=== PATIENT | male | born 1965 | race Caucasian/White ===

== ENCOUNTER 2016-09-12 04:32 | Emergency (ER) | payer SELFPAY ==
[~2016-09-12] VITALS: Ht 165.1 cm; Wt 70.5 kg
[2016-09-12 04:33] VITALS: BP 169/93; PULSE 86; RESP 18; TEMP 98.4; O2SAT 94
[2016-09-12 04:40] VITALS: O2SAT 97
--- NOTE | 2016-09-12 04:46 | PD ---
HPI Chief Complaint: Chest Pain Time Seen by Provider: 04:34 Travel History International Travel<30 days: No Contact w/Intl Traveler<30days: No Traveled to known affect area: No History of Present Illness HPI 51-year-old male complains of chest pain. Patient states that he was snorting of cocaine tonight. Patient started having chest pain subsequently. Patient states the pain is sharp pain started on the left chest with radiation to left arm. Patient complains of tingling sensation in the left arm. Patient denies any history of CAD. Patient denies history hypertension, diabetes, dyslipidemia. Patient is a smoker. Patient has history of reactive airway disease. Patient has family history heart disease. On a scale of 1-10 the pain is a 5. Patient states that the chest pains much better now compared to when it started 2 hours ago. EMS was called tonight. Patient was given aspirin 81 mg 2 prior to arrival. [facility] Social History Tobacco Use: No Allergies-Medications (Allergen,Severity, Reaction): Coded Allergies: Lortab (Verified Allergy, Severe, Itching, 09/12/16) Reported Meds & Prescriptions Reported Meds & Active Scripts Active Potassium Chloride ER (Potassium Chloride) 10 Meq Tab 10 Meq PO BID Review of Systems General / Constitutional: No: Fever Eyes: No: Visual changes HENT: No: Headaches Cardiovascular: Positive: Chest Pain or Discomfort Respiratory: No: Shortness of Breath Gastrointestinal: No: Abdominal Pain Genitourinary: No: Dysuria Musculoskeletal: No: Pain Skin: No Rash Neurologic: No: Weakness Psychiatric: No: Depression Endocrine: No: Polydipsia Hematologic/Lymphatic: No: Easy Bruising Physical Exam Narrative GENERAL: Well-nourished, well-developed patient. SKIN: Focused skin assessment warm/dry. HEAD: Normocephalic. EYES: No scleral icterus. No injection or drainage. NECK: Supple, trachea midline. No JVD or lymphadenopathy. CARDIOVASCULAR: Regular rate and rhythm without murmurs, gallops, or rubs. RESPIRATORY: Breath sounds equal bilaterally. No accessory muscle use. GASTROINTESTINAL: Abdomen soft, non-tender, nondistended. MUSCULOSKELETAL: No cyanosis, or edema. BACK: Nontender without obvious deformity. No CVA tenderness. Neurologic exam normal. Data Data Last Documented VS Vital Signs Date Time Temp Pulse Resp B/P Pulse Ox O2 Delivery O2 Flow Rate FiO2 09/12/16 05:07 91 18 147/86 97 Room Air 09/12/16 04:33 98.4 Orders Electrocardiogram (09/12/16 04:36) Complete Blood Count With Diff (09/12/16 04:36) Comprehensive Metabolic Panel (09/12/16 04:36) Creatine Kinase (Cpk) (09/12/16 04:36) Troponin I (09/12/16 04:36) Prothrombin Time / Inr (Pt) (09/12/16 04:36) Act Partial Throm Time (Ptt) (09/12/16 04:36) Chest, Single Ap (09/12/16 04:36) Iv Access Insert/Monitor (09/12/16 04:36) Ecg Monitoring (09/12/16 04:36) Oximetry (09/12/16 04:36) Labs Laboratory Tests Test 09/12/16 04:40 White Blood Count 9.5 TH/MM3 Red Blood Count 4.65 MIL/MM3 Hemoglobin 14.3 GM/DL Hematocrit 40.9 % Mean Corpuscular Volume 88.0 FL Mean Corpuscular Hemoglobin 30.7 PG Mean Corpuscular Hemoglobin 34.8 % Concent Red Cell Distribution Width 13.1 % Platelet Count 197 TH/MM3 Mean Platelet Volume 8.2 FL Neutrophils (%) (Auto) 61.1 % Lymphocytes (%) (Auto) 27.3 % Monocytes (%) (Auto) 8.3 % Eosinophils (%) (Auto) 2.4 % Basophils (%) (Auto) 0.9 % Neutrophils # (Auto) 5.8 TH/MM3 Lymphocytes # (Auto) 2.6 TH/MM3 Monocytes # (Auto) 0.8 TH/MM3 Eosinophils # (Auto) 0.2 TH/MM3 Basophils # (Auto) 0.1 TH/MM3 CBC Comment DIFF FINAL Differential Comment Prothrombin Time 10.7 SEC Prothromb Time International 1.0 RATIO Ratio Activated Partial 31.3 SEC Thromboplast Time Sodium Level 137 MEQ/L Potassium Level 3.3 MEQ/L Chloride Level 102 MEQ/L Carbon Dioxide Level 27.0 MEQ/L Anion Gap 8 MEQ/L Blood Urea Nitrogen 6 MG/DL Creatinine 0.75 MG/DL Estimat Glomerular Filtration 110 ML/MIN Rate Random Glucose 87 MG/DL Calcium Level 8.7 MG/DL Total Bilirubin 0.4 MG/DL Aspartate Amino Transf 18 U/L (AST/SGOT) Alanine Aminotransferase 19 U/L (ALT/SGPT) Alkaline Phosphatase 65 U/L Total Creatine Kinase 121 U/L Troponin I LESS THAN 0.02 NG/ML Total Protein 7.0 GM/DL Albumin 3.6 GM/DL [facility] Medical Decision Making Medical Screen Exam Complete: Yes Emergency Medical Condition: Yes Interpretation(s) 4 46 AM. EKG shows sinus rhythm nonspecific ST-T wave change. Last Impressions Chest X-Ray 09/12/16 0436 Signed Impressions: Service Date/Time: , September 12, 2016 04:34 - CONCLUSION: Normal examination. Kaushik Marie MD 5:33 AM. CBC within normal limit. Potassium 3.3. Cardiac enzymes are normal. Differential Diagnosis Differential diagnosis including musculoskeletal, angina, NH, PE, pneumothorax. Narrative Course 51-year-old male with chest pain. Patient has history of cocaine abuse. Patient arrived by EMS. Patient was given aspirin 81 mg 2. Diagnosis Primary Impression: Chest pain Qualified Code: R07.9 - Chest pain, unspecified type Additional Impressions: Hypokalemia Substance abuse Patient Instructions: General Instructions Additional Instructions: Advised patient to stop abusing drugs. Potassium as directed. Follow-up with personal physician. Return if increasing chest pain or shortness of breath. Aspirin daily. Med/Other Pt SpecificInfo: Prescription(s) given Scripts Potassium Chloride ER 10 Meq Tab10 Meq PO BID #10 TAB Ref 0 Prov:Venkata Wright MD 09/12/16 Disposition: 01 DISCHARGE HOME Condition: Stable Venkata Wright MD Sep 12, 2016 04:46
[2016-09-12 04:51] LABS: AUTOMATED NEUTROPHIL # 5.8 TH/MM3 (1.8-7.7); BASOPHIL # 0.1 TH/MM3 (0-0.2); BASOPHIL % 0.9 % (0.0-2.0); EOSINOPHIL # 0.2 TH/MM3 (0-0.4); EOSINOPHIL % 2.4 % (0.0-4.0); HEMATOCRIT 40.9 % (39.0-51.0); HEMO FLAGS DIFF FINAL; LYMPH % 27.3 % (9.0-44.0); LYMPHOCYTE # 2.6 TH/MM3 (1.0-4.8); MEAN CORPUSCULAR HEMOGLOBIN 30.7 PG (27.0-34.0); MEAN CORPUSCULAR HGB CONC 34.8 % (32.0-36.0); MONO % 8.3 % (0.0-8.0); NEUT % 61.1 % (16.0-70.0); PLATELET COUNT 197 TH/MM3 (150-450); RED BLOOD COUNT 4.65 MIL/MM3 (4.50-5.90); RED CELL DISTRIBUTION WIDTH 13.1 % (11.6-17.2); WHITE BLOOD COUNT 9.5 TH/MM3 (4.0-11.0)
[2016-09-12 05:07] VITALS: BP 147/86; PULSE 91; RESP 18; O2SAT 97
--- NOTE | 2016-09-12 05:10 | RADRPT ---
EXAM DATE/TIME: 09/12/2016 04:34 [place] COMPARISON: No previous studies available for comparison. INDICATIONS : Chest pain. MEDICAL HISTORY : None. SURGICAL HISTORY : None. ENCOUNTER: Initial ACUITY: 1 day PAIN SCORE: 6/10 LOCATION: Bilateral chest FINDINGS: A single view of the chest demonstrates the lungs to be symmetrically aerated without evidence of mas s, infiltrate or effusion. The cardiomediastinal contours are unremarkable. Osseous structures are intact. CONCLUSION: Normal examination. Kaushik Marie MD on September 12, 2016 at 5:08 Board Certified Radiologist. This report was verified electronically.
[2016-09-12 05:11] LABS: ALT (GPT) 19 U/L (12-78); ANION GAP 8 MEQ/L (5-15); AST (GOT) 18 U/L (15-37); BLOOD UREA NITROGEN 6 MG/DL (7-18); CHLORIDE 102 MEQ/L (98-107); GLOMERULAR FILTRATION RATE 110 ML/MIN (>89); POTASSIUM 3.3 MEQ/L (3.5-5.1); SODIUM (NA) 137 MEQ/L (136-145)
[2016-09-12 05:15] LABS: ALKALINE PHOSPHATASE 65 U/L (45-117); CREATINE KINASE 121 U/L (39-308); TOTAL BILIRUBIN ADULT 0.4 MG/DL (0.2-1.0)
[2016-09-12 05:21] LABS: APTT (PATIENT) 31.3 SEC (24.3-30.1); PROTHROMBIN TIME - PATIENT 10.7 SEC (9.8-11.6)
[2016-09-12] MEDS ORDERED: POTA10TA2 PO (05:35)
--- NOTE | 2016-09-12 12:21 | EKG ---
Date Performed: 09/12/2016 Time Performed: 04:36:05 PTAGE: 51 years EKG: Sinus rhythm NORMAL ECG NO PREVIOUS TRACING DOCTOR: Ike Norman Interpretating Date/Time 09/12/2016 12:19:13
== END 2016-09-12 05:52 | disposition home or self-care (01) ==
LOC: NEPE 04:32
DX: R07.9 Chest pain, unspecified (principal); E87.6 Hypokalemia; F19.10 Other psychoactive substance abuse, uncomplicated; Z72.0 Tobacco use
CPT/HCPCS: 71010; 80053; 82550; 84484; 85025; 85610; 85730; 93005

== ENCOUNTER 2016-12-04 10:54 | Emergency (ER) | payer SELFPAY ==
[~2016-12-04 10:54] MED LIST: POTA10TA2 PO
[2016-12-04 10:56] VITALS: BP 143/93; PULSE 76; RESP 20; TEMP 98.3; O2SAT 98
[2016-12-04] MEDS ORDERED: LIDOCAINE 1%/EPINEPHrine 1:100,000 SOLN 20 ML VIAL INFIL ONE (11:15)
--- NOTE | 2016-12-04 11:32 | PD ---
HPI Chief Complaint: Laceration/Skin Injury Time Seen by Provider: 11:15 Travel History International Travel<30 days: No Contact w/Intl Traveler<30days: No Traveled to known affect area: No History of Present Illness HPI 51-year-old male presents the emergency department with laceration to the hospital for the scalp. Patient states he was removing some plaster and lath with a crowbar, with a crowbar slipped and he fell forward off a small ladder, catching a nail from another board along the top of the scalp causing a laceration. He had no type of contusion or loss of consciousness. Patient is up-to-date on his tetanus. He has no other complaints or injuries. Pain is minimal. Bleeding is currently controlled. He is allergic to Lortab. [facility] Past Medical History Asthma: Yes Diminished Hearing: No Social History Alcohol Use: Yes (beer a day) Tobacco Use: No Substance Use: Yes (cocaine. ) Allergies-Medications (Allergen,Severity, Reaction): Coded Allergies: Lortab (Verified Allergy, Severe, Itching, 09/12/16) Reported Meds & Prescriptions Reported Meds & Active Scripts Active Potassium Chloride ER (Potassium Chloride) 10 Meq Tab 10 Meq PO BID Review of Systems Except as stated in HPI: all other systems reviewed are Neg General / Constitutional: No: Fever Eyes: No: Visual changes HENT: No: Headaches Cardiovascular: No: Chest Pain or Discomfort Respiratory: No: Shortness of Breath Gastrointestinal: No: Abdominal Pain Genitourinary: No: Dysuria Musculoskeletal: No: Pain Skin: No Rash Neurologic: No: Weakness Psychiatric: No: Depression Endocrine: No: Polydipsia Hematologic/Lymphatic: No: Easy Bruising Physical Exam Narrative GENERAL: Patient appears no acute distress. SKIN: Warm and dry. Patient has normal color. Normal turgor. Patient has approximately 4 cm almost full-thickness laceration to the left upper medial scalp. Skull is not visualized. HEAD: Atraumatic. Normocephalic. Tender over injured area. EYES: Pupils equal and round. No scleral icterus. No injection or drainage. ENT: No nasal bleeding or discharge. Mucous membranes pink and moist. Pharynx is clear. Airway is patent. No dental injury. NECK: Trachea midline. No bony tenderness or step-off. Range of motion is full and supple. CARDIOVASCULAR: Regular rate and rhythm. RESPIRATORY: No accessory muscle use. Clear to auscultation. Breath sounds equal bilaterally. MUSCULOSKELETAL: Extremities without clubbing, cyanosis, or edema. No obvious deformities. NEUROLOGICAL: Awake and alert. No obvious cranial nerve deficits. Motor grossly within normal limits. Five out of 5 muscle strength in the arms and legs. Normal speech. PSYCHIATRIC: Appropriate mood and affect; insight and judgment normal. Data Data Last Documented VS Vital Signs Date Time Temp Pulse Resp B/P Pulse Ox O2 Delivery O2 Flow Rate FiO2 12/04/16 10:56 98.3 76 20 143/93 98 Room Air Orders Lidocai-Epi 1%-1:100,000 Inj (Xylocaine- (12/04/16 11:15) MDM Medical Decision Making Medical Screen Exam Complete: Yes Emergency Medical Condition: Yes Differential Diagnosis Scalp contusion. Scalp laceration. Need for [place]. Narrative Course Patient is medically stable at time of exam. Tetanus is up-to-date. Laceration was repaired with 10 kevon. Dressing is placed. Wound care is discussed. Patient is given Keflex 500 mg 3 times a day 7 days. Patient take Tylenol and ibuprofen as needed and use ice to the affected area. Patient follow-up in 7 days for a wound check and staple removal. Patient can return sooner as needed. Procedures Procedure Narrative LACERATION LOCATION: Upper medial scalp LENGTH: 4 cm NUMBER OF STITCHES/KEVON: 10 states REPAIR: The area of the laceration was prepped with Betadine and sterilely draped. The laceration was infiltrated with 4 mL was 1% lidocaine with epinephrine. The wound was copiously irrigated and explored without evidence of foreign body, tendon injury or neurovascular injury. The wound was closed using kevon. This was a single layer repair. A sterile dressing was applied. The patient was advised to keep the dressing clean and dry. Patient tolerated the procedure well. Diagnosis Primary Impression: Laceration of scalp without complication Qualified Code: S01.01XA - Laceration of scalp without complication, initial encounter Patient Instructions: General Instructions, Laceration (DC) Additional Instructions: Tetanus is up-to-date. Laceration was repaired with 10 kevon. Dressing is placed. Wound care is discussed. Patient is given Keflex 500 mg 3 times a day 7 days. Patient take Tylenol and ibuprofen as needed and use ice to the affected area. Patient follow-up in 7 days for a wound check and staple removal. Patient can return sooner as needed. Med/Other Pt SpecificInfo: Prescription(s) given, Wound Care Disposition: 01 DISCHARGE HOME Condition: Stable Bo Leal Dec 04, 2016 11:32
[2016-12-04] MEDS ORDERED: CEPH500C PO (11:33)
== END 2016-12-04 11:48 | disposition home or self-care (01) ==
LOC: NEPK 10:54
DX: S01.01XA Laceration without foreign body of scalp, initial encounter (principal); J45.909 Unspecified asthma, uncomplicated; W22.8XXA Striking against or struck by other objects, initial encounter
CPT/HCPCS: 12002

== ENCOUNTER 2016-12-11 09:35 | Emergency (ER) | payer SELFPAY ==
[~2016-12-11] VITALS: Ht 165.1 cm; Wt 70.0 kg
[~2016-12-11 09:35] MED LIST changes: +CEPH500C PO; -POTA10TA2 PO
[2016-12-11 09:37] VITALS: BP 140/82; PULSE 72; RESP 20; TEMP 98.7; O2SAT 98
--- NOTE | 2016-12-11 09:45 | PD ---
HPI Chief Complaint: Wound/Suture/Staple Re-Check Time Seen by Provider: 09:44 Travel History International Travel<30 days: No Contact w/Intl Traveler<30days: No Traveled to known affect area: No History of Present Illness HPI 51-year-old male presents to the emergency department for staple removal from a left parietal scalp laceration sustained a week ago. Patient reports no pain at the site. No drainage. No fever or chills. He has no other symptoms to report. PFSH Past Medical History Asthma: Yes Diminished Hearing: No Social History Alcohol Use: Yes (beer a day) Tobacco Use: No Substance Use: Yes (cocaine. ) Allergies-Medications (Allergen,Severity, Reaction): Coded Allergies: Lortab (Verified Allergy, Severe, Itching, 12/11/16) Reported Meds & Prescriptions Reported Meds & Active Scripts Active No Active Prescriptions or Reported Medications Review of Systems Except as stated in HPI: all other systems reviewed are Neg Physical Exam Narrative GENERAL: Well-nourished, well-developed male patient, ambulatory and in no acute distress . SKIN: Focused skin assessment warm/dry. Well approximated 5 cm laceration on the left parietal scalp. A[place] are in place.. No induration. No fluctuation. HEAD: Normocephalic. EYES: No scleral icterus. No injection or drainage. NECK: Supple, trachea midline. No JVD or lymphadenopathy. CARDIOVASCULAR: Regular rate and rhythm without murmurs, gallops, or rubs. RESPIRATORY: Breath sounds equal bilaterally. No accessory muscle use. Data Data Last Documented VS Vital Signs Date Time Temp Pulse Resp B/P Pulse Ox O2 Delivery O2 Flow Rate FiO2 12/11/16 09:37 98.7 72 20 140/82 98 Room Air [facility] Medical Decision Making Medical Screen Exam Complete: Yes Emergency Medical Condition: Yes Medical Record Reviewed: Yes Differential Diagnosis Healing wound versus infected wound versus wound dehiscence Narrative Course 51-year-old male presents to emergency department for evaluation and removal of kevon from a scalp laceration. Wound looks well-healed. It is well approximated. There is no sign and symptoms of infection. Kevon are removed without difficulty. Patient tolerated this well. Wound remained well approximated. Patient is counseled on care and agrees to return immediately with any acute worsening of symptoms. Diagnosis Primary Impression: Removal of kevon Additional Impression: Laceration of scalp without complication Qualified Code: S01.01XD - Laceration of scalp without complication, subsequent encounter Referrals: Primary Care Physician Patient Instructions: Acute Wound Care (ED), General Instructions Additional Instructions: Keep the area clean and dry Follow up with your primary care provider Return to ED with acute worsening of symptoms Med/Other Pt SpecificInfo: No Change to Meds Scripts No Active Prescriptions or Reported Meds Disposition: 01 DISCHARGE HOME Condition: Stable Aracelis Christianson Dec 11, 2016 09:45
== END 2016-12-11 09:56 | disposition home or self-care (01) ==
LOC: NEPK 09:35
DX: Z48.02 Encounter for removal of sutures (principal); J45.909 Unspecified asthma, uncomplicated
CPT/HCPCS: 99281